=== PATIENT | male | born 1960 | race Caucasian/White ===

== ENCOUNTER 2022-06-17 07:38 | Emergency (ER) | payer BC ==
[~2022-06-17] VITALS: Ht 172.7 cm; Wt 100.0 kg
[2022-06-17] MEDS ORDERED: PREDNISONE 20MG TABLET PO ONE (08:30)
[2022-06-17 08:33] VITALS: BP 150/80
[2022-06-17] MEDS ORDERED: ACET-2708 MT (09:25)
[2022-06-17] MEDS ORDERED: P20 MT (09:25)
== END 2022-06-17 09:50 | disposition home or self-care (01) ==
LOC: ER 07:38
DX: J02.9 Acute pharyngitis, unspecified (principal); I10 Essential (primary) hypertension; Z13.9 Encounter for screening, unspecified; Z86.39 Personal history of other endocrine, nutritional and metabolic disease
CPT/HCPCS: 99283; J7512